=== PATIENT | male | born 1990 | race Caucasian/White ===

== ENCOUNTER → 2018-03-24 | Outpatient (CLI) | payer BC ==
[2014-11-01 13:24] VITALS: BP 139/64
[~2018-03-24] MED LIST: GADOBUTROL 10 MMOL/10 ML VIAL IV ONE; IBUP200T77 PO; OXYC-323 PO
--- NOTE | 2018-03-24 16:31 | KCIC ---
MR of the left thigh with and without contrast HISTORY: Left thigh pain. Arterial vascular malformation since childhood. Pain in the mid to distal thigh. TECHNIQUE: Pre and postcontrast images are obtained through the area of interest FINDINGS: There is a mass within the vastus medialis muscle at the mid thigh. This consists of numerous components of serpiginous and tubular signal with some interposed muscle and fatty tissue between the components. These also demonstrate fluid signal on T2-weighted images, and some of these demonstrate fluid fluid levels. There appears to be a feeding or draining vessel at the posterior aspect which communicates with the popliteal vascular bundle. This measures altogether 5.6 cm AP by 3.9 cm wide by 5.7 cm height. Margins are well-defined. No significant edema in the adjacent muscle tissue or subcutaneous tissue. These numerous components demonstrate enhancement. No separate masses are seen. No bone lesion, acute fracture or marrow edema. No periosteal reaction. IMPRESSION: Soft tissue mass in the vastus medialis muscle, most compatible with a vascular malformation. Electronically signed by: Jeromy Iverson MD (03/24/2018 4:27 PM) [id number]
== END | disposition home or self-care (01) ==
LOC: KCIC MRI 14:46
PROVIDERS: ATTEND Family Medicine
DX: M62.89 Other specified disorders of muscle (principal)
CPT/HCPCS: 73720; A9585

== ENCOUNTER 2019-08-22 21:14 | Emergency (ER) | payer BC ==
[~2019-08-22] VITALS: Ht 188 cm; Wt 106.0 kg
[~2019-08-22 21:14] MED LIST changes: -GADOBUTROL 10 MMOL/10 ML VIAL IV ONE; -OXYC-323 PO; +OXYC1TAB15 PO
[2019-08-22] MEDS ORDERED: ONDANSETRON ODT 4 MG TAB.RAPDIS. ONE (22:17)
--- NOTE | 2019-08-22 22:29 | PHYS DOC ---
Past Medical History Past Medical History: Other Additional Past Medical Histor: AVM (RODOLFO MOREL APRN) Past Surgical History: Other Additional Past Surgical Histo: hernia repair (RODOLFO MOREL APRN) Smoking Status: Never Smoker Alcohol Use: Rarely Drug Use: None (RODOLFO MOREL APRN) Attending Signature I have participated in the care of this patient and I have reviewed and agree with all pertinent clinical information above including history, exam, and recommendations. (MAGED ARTEAGA MD) Adult General Chief Complaint Chief Complaint: FLU SYMPTOM HPI HPI Patient is a 29 year old male, accompanied by his , who presents to the emergency department with complaints of generalized body aches and fatigue with nausea, vomiting, and diarrhea that began today. Patient states that he was sick last week with a sore throat and went to his primary care doctor where he received some prednisone. He states that he was feeling fine on Friday and Friday until today when he woke up he felt horrible. Patient currently denies any sore throat, fever, cough, shortness of breath, wheezing, ear pain, or headache. patient states that he has had at least 6 episodes of vomiting and 2 episodes of diarrhea since the onset of his symptoms earlier today. He denies any hematemesis or melena. He currently rates his discomfort a 7 out of 10 on the pain scale, he denies any alleviating or exacerbating factors. (RODOLFO MOREL APRN) Review of Systems Review of Systems All other ROS is negative unless otherwise noted in HPI. (RODOLFO MOREL APRN) Current Medications Current Medications Current Medications Medications (Trade) Dose Ordered Sig/Sadaf Start Time Stop Time Status Last Admin Dose Admin Ondansetron HCl (Zofran Odt) 4 mg STK-MED ONCE 08/22/19 22:17 08/22/19 22:18 DC Prochlorperazine Edisylate (Compazine) 10 mg 1X ONCE 08/22/19 22:45 08/22/19 22:46 DC 08/22/19 23:01 10 MG Sodium Chloride 1,000 ml @ 1,000 mls/hr 1X ONCE 08/22/19 22:45 08/22/19 23:44 DC 08/22/19 23:01 1,000 MLS/HR (MAGED ARTEAGA MD) Allergies Allergies Allergies Coded Allergies Type Severity Reaction Last Updated Verified No Known Drug Allergies 12/09/13 No (MAGED ARTEAGA MD) Physical Exam Physical Exam See Above Constitutional: Well developed, well nourished, no acute distress, ill appearance HENT: Normocephalic, atraumatic, bilateral external ears normal, bilateral TMs normal, posterior pharynx normal oropharynx moist, nose congested with erythema and edema of the nasal turbinates bilaterally Eyes: PERRLA, conjunctiva injected bilaterally, no discharge. [] Neck: Normal range of motion, no stridor. [] Cardiovascular:Heart rate regular rhythm, no murmur [] Lungs & Thorax: Bilateral breath sounds clear to auscultation, Respirations even and unlabored, no retractions, no respiratory distress Abdomen: soft, non-tender, bowel sounds active in all quadrants, no guarding Skin: Warm, dry, no erythema, no rash. [] Back: No tenderness Extremities: No cyanosis, ROM intact Neurologic: Alert and oriented X 3, no focal deficits noted. [] Psychologic: Affect normal, judgement normal, mood normal. (RODOLFO MOREL APRN) Current Patient Data Vital Signs Vital Signs Date Time Temp Pulse Resp B/P (MAP) Pulse Ox O2 Delivery O2 Flow Rate FiO2 08/23/19 00:10 112 128/73 (91) 95 Room Air 08/22/19 21:37 98.1 16 98.1 (MAGED ARTEAGA MD) Lab Values Laboratory Tests Test 08/22/19 22:52 White Blood Count 8.6 x10^3/uL (4.0-11.0) Red Blood Count 5.21 x10^6/uL (4.30-5.70) Hemoglobin 16.0 g/dL (13.0-17.5) Hematocrit 46.5 % (39.0-53.0) Mean Corpuscular Volume 89 fL (79-100) Mean Corpuscular Hemoglobin 31 pg (25-35) Mean Corpuscular Hemoglobin Concent 34 g/dL (31-37) Red Cell Distribution Width 13.0 % (11.5-14.5) Platelet Count 257 x10^3/uL (140-400) Neutrophils (%) (Auto) 88 % (31-73) H Lymphocytes (%) (Auto) 7 % (24-48) L Monocytes (%) (Auto) 4 % (0-9) Eosinophils (%) (Auto) 1 % (0-3) Basophils (%) (Auto) 0 % (0-3) Neutrophils # (Auto) 7.6 x10^3/uL (1.8-7.7) Lymphocytes # (Auto) 0.6 x10^3/uL (1.0-4.8) L Monocytes # (Auto) 0.3 x10^3/uL (0.0-1.1) Eosinophils # (Auto) 0.1 x10^3/uL (0.0-0.7) Basophils # (Auto) 0.0 x10^3/uL (0.0-0.2) Segmented Neutrophils % 70 % (35-66) H Band Neutrophils % 17 % (0-9) H Lymphocytes % 9 % (24-48) L Monocytes % 3 % (0-10) Eosinophils % 1 % (0-5) Platelet Estimate Adequate (ADEQUATE) Polychromasia Slight Sodium Level 139 mmol/L (136-145) Potassium Level 3.9 mmol/L (3.5-5.1) Chloride Level 101 mmol/L (98-107) Carbon Dioxide Level 30 mmol/L (21-32) Anion Gap 8 (6-14) Blood Urea Nitrogen 20 mg/dL (8-26) Creatinine 0.9 mg/dL (0.7-1.3) Estimated GFR (Cockcroft-Gault) 98.4 Glucose Level 121 mg/dL (70-99) H Calcium Level 8.4 mg/dL (8.5-10.1) L Laboratory Tests 08/22/19 22:52 Laboratory Tests 08/22/19 22:52 (MAGED ARTEAGA MD) Lab Values Laboratory Tests Test 08/22/19 22:52 White Blood Count 8.6 x10^3/uL (4.0-11.0) Red Blood Count 5.21 x10^6/uL (4.30-5.70) Hemoglobin 16.0 g/dL (13.0-17.5) Hematocrit 46.5 % (39.0-53.0) Mean Corpuscular Volume 89 fL (79-100) Mean Corpuscular Hemoglobin 31 pg (25-35) Mean Corpuscular Hemoglobin Concent 34 g/dL (31-37) Red Cell Distribution Width 13.0 % (11.5-14.5) Platelet Count 257 x10^3/uL (140-400) Neutrophils (%) (Auto) 88 % (31-73) H Lymphocytes (%) (Auto) 7 % (24-48) L Monocytes (%) (Auto) 4 % (0-9) Eosinophils (%) (Auto) 1 % (0-3) Basophils (%) (Auto) 0 % (0-3) Neutrophils # (Auto) 7.6 x10^3/uL (1.8-7.7) Lymphocytes # (Auto) 0.6 x10^3/uL (1.0-4.8) L Monocytes # (Auto) 0.3 x10^3/uL (0.0-1.1) Eosinophils # (Auto) 0.1 x10^3/uL (0.0-0.7) Basophils # (Auto) 0.0 x10^3/uL (0.0-0.2) Segmented Neutrophils % 70 % (35-66) H Band Neutrophils % 17 % (0-9) H Lymphocytes % 9 % (24-48) L Monocytes % 3 % (0-10) Eosinophils % 1 % (0-5) Platelet Estimate Adequate (ADEQUATE) Polychromasia Slight Sodium Level 139 mmol/L (136-145) Potassium Level 3.9 mmol/L (3.5-5.1) Chloride Level 101 mmol/L (98-107) Carbon Dioxide Level 30 mmol/L (21-32) Anion Gap 8 (6-14) Blood Urea Nitrogen 20 mg/dL (8-26) Creatinine 0.9 mg/dL (0.7-1.3) Estimated GFR (Cockcroft-Gault) 98.4 Glucose Level 121 mg/dL (70-99) H Calcium Level 8.4 mg/dL (8.5-10.1) L Laboratory Tests 08/22/19 22:52 Laboratory Tests 08/22/19 22:52 (RODOLFO MOREL APRN) EKG EKG [] (RODOLFO MOREL APRN) Radiology/Procedures Radiology/Procedures [] (RODOLFO MOREL APRN) Course & Med Decision Making Course & Med Decision Making Pertinent Labs and Imaging studies reviewed. (See chart for details) Patient is a 29-year-old male who presented to the emergency room with complaints of nausea, vomiting, diarrhea, flulike symptoms began today. He was given 4 mg of by mouth Zofran and a fluid challenge while in the department. Patient did not tolerate the by mouth challenge. CBC and BMP were drawn, CBC was concerning for a left shift however normal white blood cell count. Patient was given a liter of normal saline and 10 mg of Compazine IV, reported feeling better after these medications. A prescription was written for Zofran to take at home as needed for nausea, I encouraged clear fluids for 24 hours then advance diet as tolerated starting the bland foods. Prescription was also written for Tamiflu as the patient's symptoms are consistent with influenza. His vital signs are stable throughout the visit. He was encouraged follow-up with his primary c are doctor if symptoms persist, return to the ER if symptoms worsen. Patient verbalized an understanding of home care, medications, follow-up, and return to ED instructions and was in agreement with the plan of care. [] (RODOLFO MOREL APRN) Dragon Disclaimer Dragon Disclaimer This electronic medical record was generated, in whole or in part, using a voice recognition dictation system. (RODOLFO MOREL APRN) Departure Departure Impression: Primary Impression: Nausea, vomiting, and diarrhea Additional Impression: Flu-like symptoms Disposition: 01 HOME, SELF-CARE Condition: STABLE Referrals: NEGRITO GOMEZ MD (PCP) Patient Instructions: Diet for Diarrhea, Adult, Influenza, Adult, [id number], Nausea and Vomiting, [id number] Additional Instructions: Fill the prescription and take as directed. Alternate Tylenol and ibuprofen as needed for fever. Increase clear fluids and rest. Diet as tolerated. Recommend use of [id number] flu medications as needed for relief of your symptoms. Follow up with your primary care doctor if symptoms persist, return to the ER symptoms worsen. Scripts Oseltamivir Phosphate (TAMIFLU) 75 Mg Capsule 1 CAP PO BID for 5 Days, #10 CAP 0 Refills Prov: RODOLFO MOREL APRN 08/23/19 Ondansetron Hcl (ONDANSETRON HCL) 4 Mg Tablet 1 TAB PO PRN Q6HRS PRN for NAUSEA/VOMITING for 3 Days, #10 TAB 0 Refills Prov: RODOLFO MOREL APRN 08/23/19 Problem Qualifiers RODOLFO MOREL APRN Aug 22, 2019 22:29 MAGED ARTEAGA MD Aug 23, 2019 05:30
[2019-08-22] MEDS ORDERED: ONDANSETRON ODT 4 MG TAB.RAPDIS. PO ONE (22:30)
[2019-08-22] MEDS ORDERED: IV NORMAL SALINE 1000ML BAG 1,000 ML IV ONE (22:45)
[2019-08-22] MEDS ORDERED: PROCHLORPERAZINE 10 MG/2 ML VIAL. IV ONE (22:45)
[2019-08-22 23:03] LABS: BASO % 0 % (0-3); EOS # 0.1 x10^3/uL (0.0-0.7); EOS % 1 % (0-3); HEMATOCRIT 46.5 % (39.0-53.0); LYMPH # 0.6 x10^3/uL (1.0-4.8); LYMPH % 7 % (24-48); MEAN CORPUSCULAR HEMOGLOBIN 31 pg (25-35); MEAN CORPUSCULAR HGB CONC 34 g/dL (31-37); MEAN CORPUSCULAR VOLUME 89 fL (79-100); MONO # 0.3 x10^3/uL (0.0-1.1); MONO % 4 % (0-9); NEUT # 7.6 x10^3/uL (1.8-7.7); NEUT % 88 % (31-73); PLATELET COUNT 257 x10^3/uL (140-400); RED BLOOD COUNT 5.21 x10^6/uL (4.30-5.70); WHITE BLOOD COUNT 8.6 x10^3/uL (4.0-11.0)
[2019-08-22 23:15] LABS: CALCIUM 8.4 mg/dL (8.5-10.1); CREATININE 0.9 mg/dL (0.7-1.3); GFR 98.4; POTASSIUM 3.9 mmol/L (3.5-5.1)
[2019-08-22 23:19] LABS: % BANDS 17 % (0-9); % EOS 1 % (0-5); % LYMPHS 9 % (24-48); % MONOS 3 % (0-10); % SEGS 70 % (35-66)
[2019-08-22 23:23] LABS: PLT ESTIMATE ADEQUATE (ADEQUATE); POLYCHROMASIA SLIGHT
[2019-08-23] MEDS ORDERED: OSEL75CA PO (00:03)
[2019-08-23] MEDS ORDERED: ONDA-84 PO (00:03)
[2019-08-23 00:10] VITALS: BP 128/73
== END 2019-08-23 00:10 | disposition home or self-care (01) ==
LOC: ER 21:14
DX: R11.2 Nausea with vomiting, unspecified (principal); R19.7 Diarrhea, unspecified; R53.83 Other fatigue; L53.9 Erythematous condition, unspecified; R60.9 Edema, unspecified; Z98.890 Other specified postprocedural states
CPT/HCPCS: 36415; 80048; 85007; 85025; 96361; 96374; 99284; J0780; J7030; Q0162